=== PATIENT | male | born 1965 | race Caucasian/White ===

== ENCOUNTER 2024-05-13 13:17 | Outpatient (AMB) | payer MEDICAID, SELFPAY ==
--- NOTE | 2024-05-13 13:19 | A.SPINEOV_ITS ---
Intake Visit Reasons: cord compression Intake Note: Mr. Fisher is here today c/o neck pain. Elevator Inspector Required: No Assessment & Plan Assessment & Plan (1) Cervical disc disorder: Code(s): M50.90 - Cervical disc disorder, unspecified, unspecified cervical region Category: Medical Plan Dear Dr Pat, Thank you for referring Mr Fisher to our office today. He is a very nice 58-year-old gentleman presents to the office today for evaluation of chronic neck pain. He reports that he has had on and off neck pain for many years. Back in 2008, he had a flare-up associated with the radiculopathy down his right arm which ultimately went away with just some gentle conservative treatment including therapy. Maybe 6 months ago or so, things started to act up on him. Specifically, he has been feeling significant amounts of neck pain in the back of his neck down the lower cervical regions. It bothers him when he turns his head. He has been doing the physical therapy exercises that he learned years ago but it has become too difficult and painful to continue them. He tried doing them in the shower thinking the heat from the shower might help but it does not seem to be doing anything. He has been taking meloxicam and methocarbamol. The meloxicam does not do anything. The methocarbamol does seem to help a little bit. 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 Denies any shooting pains down his arms, tingling numbness, gait imbalance, bladder incontinence, difficulty with fine motor tasks. PMH: He is otherwise healthy, he has high cholesterol, depression he does smoke a little less than a pack of cigarettes a day and smokes marijuana daily, denies any problems with his heart, lungs, kidneys, liver, major abdominal surgeries, neck surgeries, bleeding disorders, blood clots etc. Social hx: As above, smokes marijuana and cigarettes daily, no alcohol Medications: Methocarbamol, bupropion, rosuvastatin, meloxicam Allergies: None Physical exam: Awake alert oriented no acute distress, he has full strength of bilateral upper and lower extremities. Slightly brisk reflexes in the upper extremities, no Rosario's sign, 3+ reflexes in the patella with clonus in the left foot. No gait imbalance. Imaging review: Cervical MRI done at [facility] shows multilevel degenerative disc disease, starting at the top were C3-4 has fairly collapsed disc, there appears to be osteophyte overgrowth here, I am not exactly sure if it has fused yet. C4-5 there is severe disc collapse with Modic endplate changes and moderate to severe central canal stenosis, C5-6 also degenerative disc disease with moderate to severe stenosis. There may be subtle cord signal change her on the left. Not reported by the radiologist. Impression: 58-year-old male presents for evaluation of neck pain, who has multilevel degenerative disc disease. He also has superimposed congenitally narrow spinal canal and there is significant stenosis at C4-5 and C5-6 as outlined above. There may be some subtle cord signal change on the left, not reported by the radiologist. He does have clonus in his left foot which would be consistent with his MRI imaging if indeed the T2 cord signal changes true. Currently has no myelopathic symptoms. I reviewed his MRI with him at length, explained to him that neck pain can be difficult to always establish the source. It can be associated with degenerative disc but can be from other things as well. Typically, the surgery of choice for neck pain and degenerative discs that has failed conservative treatment would be anterior cervical fusion. Before we consider doing fusion for neck pain, I would like to order a noncontrast CT scan of the cervical spine to be more clear about whether that C3-4 disc is already fused. Once the CT scan is done, I will bring him back and Dr. Boyd and I can review the MRI and CT together determine what surgery would be optimal for him. Thank you for allowing us to care for your patient. The total time spent with this visit with this patient was 45 minutes reviewing history, physical exam, cervical spine imaging review, and implementation of treatment plan or further diagnostic testing Joselo Boyd MD,PhD [facility] Orders: Orders CT cervical spine wo IV con Today M50.90 - Cervical disc disorder, unspecified, unspecified cervical region Coding Level of Care Code New Pt Level 4 (55921) Diagnoses Cervical disc disorder M50.90
== END 2024-05-13 14:47 | disposition home or self-care (01) ==
PROVIDERS: PCP Family Medicine; Referring Provider Family Medicine; Visit Provider Physician Assistant
DX: M50.90 Cervical disc disorder, unspecified, unspecified cervical region (principal)
CPT/HCPCS: 99204

== ENCOUNTER → 2024-05-13 13:17 | Outpatient (BNVA) | payer MEDICAID, SELFPAY | PROVIDERS: PCP Family Medicine; Visit Provider Physician Assistant | DX: M50.90 Cervical disc disorder, unspecified, unspecified cervical region (principal) | CPT/HCPCS: 99212 ==

== ENCOUNTER 2024-05-27 14:17 | Outpatient (AMB) | payer MEDICAID, SELFPAY ==
--- NOTE | 2024-05-27 15:37 | A.SPINEOV_ITS ---
Intake Visit Reasons: CT follow up Intake Note: Mr. Fisher is here today to f/u on his CT results CT done at [facility] Pole Classifier Required: No Assessment & Plan Assessment & Plan (1) Cervical disc disorder: Code(s): M50.90 - Cervical disc disorder, unspecified, unspecified cervical region Category: Medical Plan Mr Fisher return to see me in follow-up. He continues to have severe posterior cervical neck pain. His CT done at [facility] confirms what we saw on his MRI that he has multilevel degenerative disc disease. He has no radiculopathy symptoms or myelopathic symptoms. The pain is so severe that he is having trouble even going to work. He is interested in surgery. I explained to him th at the typical treatment for this would be an anterior cervical fusion, but that I would need to review with Dr. Boyd to see if we could localize better which levels we think the pain maybe coming from. Right now there are 3 degenerative disc. None of them look fused. Once I have a chance to review everything with Dr. Boyd I will call the patient back in finalize a plan for him. Total amount of time spent in this visit was 20 minutes in discussion of symptoms, cervical CT and MRI imaging results and subsequent plan of care Joselo Boyd MD,PhD [facility] Coding Level of Care Code Est Pt Level 3 (99887) Diagnoses Cervical disc disorder M50.90
== END 2024-05-27 16:02 | disposition home or self-care (01) ==
PROVIDERS: PCP Family Medicine; Visit Provider Physician Assistant
DX: M50.90 Cervical disc disorder, unspecified, unspecified cervical region (principal)
CPT/HCPCS: 99213

== ENCOUNTER → 2024-05-27 14:17 | Outpatient (BNVA) | payer MEDICAID, SELFPAY | PROVIDERS: PCP Family Medicine; Visit Provider Physician Assistant | DX: M50.31 Other cervical disc degeneration, high cervical region (principal); M50.321 Other cervical disc degeneration at C4-C5 level; M50.322 Other cervical disc degeneration at C5-C6 level | CPT/HCPCS: 99212 ==

== ENCOUNTER 2024-07-26 14:12 | Outpatient (AMB) | payer MEDICAID, SELFPAY ==
--- NOTE | 2024-07-26 14:38 | A.SPINEOV_ITS ---
Intake Visit Reasons: F/U from Intake Note: Mr. Fisher is here today to F/u after seeing Dr. Morales Yard Switcher Required: No Assessment & Plan Assessment & Plan (1) Cervical disc disorder: Code(s): M50.90 - Cervical disc disorder, unspecified, unspecified cervical region Category: Medical Plan Mr Fisher is back in follow up. His injection at C7-T1 by Dr. Morales has taken the neck pain away and he is feeling great. I told him to give us a call back down the road if something changes. We discussed the natural history of degenerative disc disease again as well as trying to avoid surgery as long as possible. He will call us down the road if something changes. Otherwise I told him to continue to follow up with Dr. Morales for more injections if needed. Total amount of time spent in this visit was 20 minutes in discussion of symptoms, cervical CT and MRI at [facility] imaging results and subsequent plan of care Joselo Boyd MD,PhD [facility] Coding Level of Care Code Est Pt Level 3 (29126) Diagnoses Cervical disc disorder M50.90
== END 2024-07-26 15:05 | disposition home or self-care (01) ==
PROVIDERS: PCP Family Medicine; Visit Provider Physician Assistant
DX: M50.90 Cervical disc disorder, unspecified, unspecified cervical region (principal)
CPT/HCPCS: 99213

== ENCOUNTER → 2024-07-26 14:12 | Outpatient (BNVA) | payer MEDICAID, SELFPAY | PROVIDERS: PCP Family Medicine; Visit Provider Physician Assistant | DX: M50.90 Cervical disc disorder, unspecified, unspecified cervical region (principal) | CPT/HCPCS: 99212 ==

== ENCOUNTER 2025-07-28 14:05 | Outpatient (AMB) | payer MEDICAID, SELFPAY ==
--- OUTSIDE RECORDS SUMMARY | 2024-05-26 05:00 | XMS_ITS ---
Author Organization [facility] Address [address] [place] [address] Care Team Providers Care Glue Wheel Operator Name Role Phone Roman Robles Primary Care Provider REASON FOR VISIT office: chronic care f/u Medications Medication SIG (Take, Route, Frequency, Duration) Notes Start Date End Date Status INCRUSE ELLIPTA 62.5 mcg (0.0625 mg)/inh 1 INH inhaled every 24 hours for 28 days 04/02/2021 Not-Taking VITAMIN B-50 Vitamin B Complex 1 tab(s) orally once a day for 30 day(s) 09/15/2017 Not-Taking PROAIR HFA 90 mcg/inh 2 puff(s) inhaled 4 times a day PRN Wheezing or Shortness of breath for 28 days Not-Taking VITAMIN D3 1000 intl units as directed orally once a day for 28 day(s) 04/02/2021 Not-Taking THIAMINE 100 mg 1 tab(s) orally once a day for 28 day(s) 04/02/2021 Not-Taking BUPROPION 300 mg/24 hours 1 tab(s) orally every 24 hours for 30 days 03/18/2024 Active FOLIC ACID 1 mg 1 tab(s) orally once a day for 28 day(s) 04/02/2021 Not-Taking NICODERM C-Q CLEAR 21 mg/24 hr 1 PATCH transdermally once a day 04/02/2021 Not-Taking TYLENOL 8 HR ARTHRITIS PAIN 650 mg 2 tab(s) orally every 8 hours for 30 days 12/17/2022 Not-Taking NICODERM C-Q CLEAR 21 mg/24 hr 1 PATCH transdermally once a day apply once a day in am and remove at night 12/03/2023 Not-Taking ROSUVASTATIN 5 mg 1 tab(s) orally once a day for 90 days 01/23/2024 Active Social History Sex Assigned At : Social History Observation Description Sex Assigned At Male Encounters Encounter Location Date Provider Diagnosis [address] [address] 05/26/2024 Roman Robles Encounter for screening for COVID-19 Z11.52 Assessments Encounter Date Diagnosis (ICD Code) Assessment Notes Treatment Notes Treatment Clinical Notes Section Notes 05/26/2024 Encounter for screening for COVID-19 (ICD-10 - Z11.52) Covid screening is negative. Discussed in detail with patient how to practice social distancing by avoiding public spaces and crowds now, wearing a mask in public to keep nose and mouth covered, and washing hands frequently especially before eating and after using the bathroom. Return to clinic if you develop any symtpoms of concern to be rescreened or go to the emergency room if you are having concerning symptoms for COVID-19. 05/26/2024 Other Plan Of Treatment Treatment Notes Assessment Notes Encounter for screening for COVID-19 Cov id screening is negative. Discussed in detail with patient how to practice social distancing by avoiding public spaces and crowds now, wearing a mask in public to keep nose and mouth covered, and washing hands frequently especially before eating and after using the bathroom. Return to clinic if you develop any symtpoms of concern to be rescreened or go to the emergency room if you are having concerning symptoms for COVID-19. Progress Notes * Daryl FISHER KDOB: 6 (60 yo M)Acc No.[id number]:05/26/2024 Progress Notes Patient: Daryl CROWDER Provider: NISHA Esquivel :1965 A ge:58 Y S ex:Male Date:05/26/2024 Address:[address] [place] [address], [facility] address, [facility] Subjective: * Chief Complaints: * 1 . Office: chronic care f/u. * HPI: G eneral: Symptom Screen: - Fever in the last 1 week? Patient denies - New or worsening cough in the last 1 week? Patient denies. - Contact will known COVID exposure in last 5 days? Patient denies -new rash within last 3 weeks? Patient denies RN/MA: - Have you received the COVID-19 vaccine? - Have you received COVID-19 booster? - Have you been tested positive for COVID -19 in the last 7 days? If so where and why?. * ROS: N o acute C/P no acute SOB, No problem with urine, No heartburn or abdominal pain. Endorses being able to climb one fight of stairs without stopping due to SOB, Mood: stable, appetite: good, sleeping well. Denies new skin rashes. * Medical History: * Medications: T aking ROSUVASTATIN 5 mg tablet 1 tab(s) orally once a day , Taking BUPROPION 300 mg/24 hours tablet, extended release 1 tab(s) orally every 24 hours , Not- Taking/PRN NICODERM C-Q CLEAR 21 mg/24 hr film, extended release 1 PATCH transdermally once a day apply once a day in am and remove at night, Not-Taking/PRN TYLENOL 8 HR ARTHRITIS PAIN 650 mg tablet, extended release 2 tab(s) orally every 8 hours , Not- Taking/PRN NICODERM C-Q CLEAR 21 mg/24 hr film, extended release 1 PATCH transdermally once a day , Not-Taking/PRN FOLIC ACID 1 mg tablet 1 tab(s) orally once a day , Not-Taking/PRN THIAMINE 100 mg tablet 1 tab(s) orally once a day , Not- Taking/PRN VITAMIN D3 1000 intl units tablet as directed orally once a day , Not-Taking/PRN VITAMIN B-50 Vitamin B Complex tablet 1 tab(s) orally once a day , Not- Taking/PRN INCRUSE ELLIPTA 62.5 mcg (0.0625 mg)/inh powder 1 INH inhaled every 24 hours , Not-Taking/PRN PROAIR HFA 90 mcg/inh aerosol 2 puff(s) inhaled 4 times a day PRN Wheezing or Shortness of breath Objective: * Vitals: Assessment: * Assessment: 1. E ncounter for screening for COVID-19 - Z11.52 (Primary) Plan: * Treatment: * Images: Billing Information: * Visit Code: * Procedure Codes: Care Plan Details* * Electronic signature of Hua Robles on 07/28/2025 at 09:33 PM EST Sign off status: Pending * Provider: NISHA Esquivel Date: 1 Generated for Mirella fitch/Anthony/Trev on: 1 09/28/2024 09:33 PM EST
--- OUTSIDE RECORDS SUMMARY | 2024-06-10 06:30 | XMS_ITS ---
Author Organization [facility] Address [address] [place] [address] Care Team Providers Care Insulating Machine Operator Name Role Phone Roman Robles Primary Care Provider Valentina Vieira Unavailable [phone] REASON FOR VISIT MS/PHONE: Supportive Counseling [phone] Social History Sex Assigned At : Social History Observation Description Sex Assigned At Male Encounters Encounter Location Date Provider Diagnosis [facility] [address] [facility] [place], [place] [id number] 06/10/2024 Valentina Vieira Plan Of Treatment No Information Progress Notes * Daryl FISHER KDOB: 6 (60 yo M)Acc No.[id number]:06/10/2024 Progress Notes Patient: Daryl CROWDER Provider: Jessica Vieira :1965 A ge:59 Y S ex:Male Date:06/10/2024 Address:[address] [place] [address], verify address, [facility] Pcp:Roman Robles Subjective: * Chief Complaints: * 1 . MS/PHONE: Supportive Counseling [phone]. * Medical History: Objective: * Vitals: Assessment: Plan: * Treatment: * Images: Billing Information: * Visit Code: * Procedure Codes: Care Plan Details* * Electronic signature of Brianda Vieira on 07/28/2025 at 09:34 PM EST Sign off status: Pending * Provider: Jessica Vieira Date: Generated for Sudeepi little/Anthony/eTransmitting on: 09/28/2024 09:34 PM EST
--- OUTSIDE RECORDS SUMMARY | 2025-04-30 16:00 | XMS_ITS ---
Author Organization [facility] Address [address] [place] [address] Care Team Providers Care Geography Instructor Name Role Phone Nettebenjamin Huapat Primary Care Provider [phone] Migration, Provider Unavailable Unavailable Allergies Allergen (clinical drug ingredient) Drug/Non Drug Allergy documented on EMR Reaction Allergy Type Onset Date Status BANANAS (FRUIT) (uncoded) vomiting Allergy Active [facility]ASON FOR VISIT [facility] Encounter Medications Medication SIG (Take, Route, Frequency, Duration) Notes Start Date End Date Status Vitamin B-50 VITAMIN B COMPLEX 1 TAB(S) ORALLY ONCE A DAY for 30 DAY(S) *Please review and pick correct strength-formulat ion from GreenGar options. If intended option is not shown, discontinue and re-order from Quick Search* 09/15/2017 Not-Taking Incruse Ellipta 62.5 MCG (0.0625 MG)/INH 1 INH INHALED EVERY 24 HOURS for 28 DAYS *Please review and pick correct strength-formulat ion from GreenGar options. If intended option is not shown, discontinue and re-order from Quick Search* 04/02/2021 Not-Taking ProAir HFA 90 MCG/INH 2 PUFF(S) INHALED 4 TIMES A DAY PRN WHEEZING OR SHORTNESS OF BREATH for 28 DAYS *Please review and pick correct strength-formulat ion from GreenGar options. If intended option is not shown, discontinue and re-order from Quick Search* Not-Taking Thiamine HCl 100 MG 1 tab(s) orally once a day for 28 day(s) 04/02/2021 Not-Taking Vitamin D3 25 MCG (1000 UT) as directed orally once a day for 28 day(s) 04/02/2021 Not-Taking Rosuvastatin Calcium 5 MG 1 tab(s) orally once a day for 90 days 01/23/2024 Active Nicoderm CQ 21 MG/24HR 1 PATCH transdermally once a day 12/03/2023 Not-Taking Nicoderm CQ 21 MG/24HR 1 PATCH transdermally once a day 04/02/2021 Not-Taking Folic Acid 1 MG 1 tab(s) orally once a day for 28 day(s) 04/02/2021 Not-Taking Tylenol 8 Hour Arthritis Pain 650 MG 2 tab(s) orally every 8 hours for 30 days 12/17/2022 Not-Taking buPROPion HCl ER (XL) 300 MG 1 tab(s) orally every 24 hours for 30 days Active Social History Sex Assigned At : Social History Observation Description Sex Assigned At Male Encounters Encounter Location Date Provider Diagnosis [address] [address] 04/30/2025 Provider Migration Major depressive disorder, recurrent severe without psychotic features F33.2 Assessments Encounter Date Diagnosis (ICD Code) Assessment Notes Treatment Notes Treatment Clinical Notes Section Notes 04/30/2025 Major depressive disorder, recurrent severe without psychotic features (ICD-10 - F33.2) Plan Of Treatment Medication Medication Name Sig Start Date Stop Date Notes buPROPion HCl ER (XL) 300 MG 1 tab(s) or ally every 24 hours for 30 days Progress Notes * Daryl FISHER KDOB: [birth year] (60 yo M)Acc No.[id number]:04/30/2025 Patient: Daryl CROWDER Provider: :1965 A ge:59 Y S ex:Male Date:04/30/2025 Address:[address] [place] [address], verify address, [facility] Pcp:Roman Robles Subjective: * Chief Complaints: * 1 . Multum To Medispan Conversion Encounter. * Medical History: * Medications: T aking Rosuvastatin Calcium 5 MG Tablet 1 tab(s) orally once a day , Not- Taking/PRN Nicoderm CQ 21 MG/24HR Patch 24 Hour 1 PATCH transdermally once a day , Not-Taking/PRN Tylenol 8 Hour Arthritis Pain 650 MG Tablet Extended Release 2 tab(s) orally every 8 hours , Not-Taking/PRN Nicoderm CQ 21 MG/24HR Patch 24 Hour 1 PATCH transdermally once a day , Not-Taking/PRN Folic Acid 1 MG Tablet 1 tab(s) orally once a day , Not-Taking/PRN Thiamine HCl 100 MG Tablet 1 tab(s) orally once a day , Not-Taking/PRN Vitamin D3 25 MCG (1000 UT) Tablet as directed orally once a day , Not-Taking/PRN Vitamin B-50 VITAMIN B COMPLEX TABLET 1 TAB(S) ORALLY ONCE A DAY , Notes to Pharmacist: *Please review and pick correct strength-formulation from Kinnekspan options. If intended option is not shown, discontinue and re-order from Quick Search*, Not-Taking/PRN Incruse Ellipta 62.5 MCG (0.0625 MG)/INH POWDER 1 INH INHALED EVERY 24 HOURS , Notes to Pharmacist: *Please review and pick correct strength-formulation from Updateran options. If intended option is not shown, discontinue and re-order from Quick Search*, Not-Taking/PRN ProAir HFA 90 MCG/INH AEROSOL 2 PUFF(S) INHALED 4 TIMES A DAY PRN WHEEZING OR SHORTNESS OF BREATH , Notes to Pharmacist: *Please review and pick correct strength-formulation from Updateran options. If intended option is not shown, discontinue and re-order from Quick Search* * Allergies: B ANANAS (FRUIT): vomiting - Allergy - Criticality Unknown. Objective: * Vitals: Assessment: * Assessment: 1. M ajor depressive disorder, recurrent severe without psychotic features - F33.2 ? Plan: * Treatment: * Images: Billing Information: * Visit Code: * Procedure Codes: * Electronic signature of Prov ider Migration on 07/28/2025 at 09:34 PM EST Sign off status: Pending * Provider: Date: 0 04/30/2025 Generated for Mirella fitch/Anthony/Oliviasmbeth on: 1 09/28/2024 09:34 PM EST
--- NOTE | 2025-07-28 14:40 | HO.SPINEOV ---
Intake Visit Reasons: neck pain Intake Note: Mr. Fisher is here today c/o neck pain. Charging Car Operator Required: No Allergies No Known Allergies Allergy (Verified 07/28/25 14:41) Assessment & Plan Assessment & Plan (1) Cervical disc disorder: Code(s): M50.90 - Cervical disc disorder, unspecified, unspecified cervical region Category: Medical Plan Mr Fisher is here in follow-up. About 2 months ago he developed a severe pain radiating down his right arm going into his subscapular area, down into his triceps region going into his forearm and then extending into his hand. He feels numbness of the palmar side of his hand, more toward the thumb index and middle finger. His arm feels weak. He has been taking medication prescribed by his primary care physician Dr. Pat including methocarbamol and tramadol. He has tried [id number]-[id number]-mduwhdk medications as well. He has previously done physical therapy, in the setting of his known severe degenerative disc disease in his neck. He has also had injections earlier this year with relatively good success. On exam he is very uncomfortable, has a hard time participating in motor exam because the pain is so bad. When he turns his head he can make the pain go down his arm. He has intact reflexes at the biceps and triceps both sides. No Rosario's sign. I suspect he has a new acute herniated disc, probably at C5-6 based on his clinical presentation. I am going to order an updated MRI so we can discuss possibility of surgical intervention. Total amount of time spent in this visit was 20 minutes in discussion of symptoms, ordering cervical imaging and subsequent plan of care Joselo Boyd MD,PhD [facility] Orders: Orders MR cervical spine wo con Today M50.90 - Cervical disc disorder, unspecified, unspecified cervical region Coding Level of Care Code Est Pt Level 3 (98607) Diagnoses Cervical disc disorder M50.90
--- OUTSIDE RECORDS SUMMARY | 2025-07-28 21:34 | XMS_ITS | Clinical Summary ---
Author Organization [facility] Address [address] [facility] 7t [place] [address] Care Team Providers Care Pairer Substandard Name Role Phone Roque Soto Unavailable Radha Pat MD Primary Care Provider Cari Sebastian Unavailable Allergies No known active allergies Medications pyridoxine (Vitamin B-6) 50 MG tablet Take 50 mg by mouth Once per day. 03/05/20 25 Active hydrOXYzine HCl (Atarax) 25 MG tablet Take 25 mg by mouth every 12 (twelve) hours if needed for anxiety. Active Melatonin 3 MG capsule Take 3 mg by mouth at bedtime. Active buPROPion XL (Wellbutrin XL) 300 MG 24 hr tabletIndications :Severe episode of recurrent major depressive disorder, without psychotic features (CMS/HCC) (HCC) Take 1 tablet (300 mg) by mouth in the morning. Do not crush, chew, or split. 30 tablet 1 07/20/20 25 026 Active traZODone (Desyrel) 150 MG tabletIndications :Psychophysiologi ramona insomnia Take 1 tablet (150 mg) by mouth at bedtime. 90 tablet 07/20/20 25 026 Active Brexpiprazole (Rexulti) 0.5 MG tabletIndications :Severe episode of recurrent major depressive disorder, without psychotic features (CMS/HCC) (HCC),Suicidal ideation Take 0.5 mg by mouth Once per day. 30 tablet 07/20/20 25 026 Active ketoconazole (NIZOral) 2 % shampooIndication s:Seborrheic dermatitis Use on scalp and varma in shower then rinse. 120 mL 1 07/20/20 25 026 Active traMADol (Ultram) 50 MG tabletIndications :Cervical spinal cord compression (CMS/HCC) (HCC),Cervical radiculopathy Take 1 tablet (50 mg) by mouth if needed in the morning and at bedtime for severe pain. 56 tablet 1 07/20/20 25 026 Active pantoprazole (ProtoNix) 40 MG EC tabletIndications :Gastroesophageal reflux disease without esophagitis Take 1 tablet (40 mg) by mouth before breakfast. 90 tablet 2 07/20/20 25 026 Active methocarbamol (Robaxin) 500 MG tabletIndications :Cervical radiculopathy Take 1 tablet (500 mg) by mouth if needed in the morning, at noon, in the evening, and at bedtime for muscle spasms. 20 tablet 07/20/20 25 Active methocarbamol (Robaxin) 500 MG tabletIndications :Cervical radiculopathy Take 1 tablet (500 mg) by mouth if needed in the morning, at noon, in the evening, and at bedtime for muscle spasms for up to 5 days. 20 tablet 05/19/20 24 025 Discontinued(Th erapy completed) mirtazapine (Remeron) 7.5 MG tabletIndications :Cervical radiculopathy Take 1 tablet (7.5 mg) by mouth at bedtime. 30 tablet 2 05/19/20 24 025 Discontinued rosuvastatin (Crestor) 5 MG tablet Take 1 tablet (5 mg) by mouth Once per day. 90 tablet 08/13/20 24 025 Discontinued buPROPion XL (Wellbutrin XL) 300 MG 24 hr tabletIndications :Recurrent major depressive disorder, in partial remission (CMS/HCC) Take 1 tablet (300 mg) by mouth in the morning. Do not crush, chew, or split. 30 tablet 1 09/03/19 25 025 Discontinued(Re order (will not trigger notification to Pharmacy)) pantoprazole (ProtoNix) 40 MG EC tablet Take 40 mg by mouth before breakfast. 03/05/20 25 025 Discontinued(Re order (will not trigger notification to Pharmacy)) traZODone (Desyrel) 150 MG tablet Take 150 mg by mouth at bedtime. 025 Discontinued(Re order (will not trigger notification to Pharmacy)) Active Problems Problem Noted Date Diagnosed Date Severe episode of recurrent major depressive disorder, without psychotic features (CMS/HCC) 07/20/2025 Alcohol abuse 07/20/2025 Extreme poverty 07/20/2025 Suicidal ideation 07/20/2025 Alcohol abuse counseling and surveillance of alc oholic 07/20/2025 Encounters Date Type Department Care Team Description 07/28/2025 [facility] Out[facility] [address] [phone] Cari Sebastian 07/28/2025 Patient Outreach [facility] ([facility]) Department [address] [place] [phone] Roque Soto 07/21/2025 Patient Outreach [facility] ([facility]) Department [address] [place] [phone] Cari Sebastian 07/20/2025 10:40 AM EST Office Visit [facility] MEDICAL [address] [place] [address] Radha Pat MD Cervical spinal cord compression (CMS/HCC) (HCC) (Primary Dx); Cervical radiculopathy; Immunization due; Screening for colon cancer; Screening for lung cancer; Seborrheic dermatitis; Gastroesophageal reflux disease without esophagitis 07/20/2025 Telephone [facility] MEDICAL [address] [place] [phone] Radha Pat MD Medication Problem 07/13/2025 Travel 07/06/2025 10:20 AM EST Office Visit [facility] MEDICAL [address] [place] [address] Radha Pat MD Severe episode of recurrent major depressive disorder, without psychotic features (CMS/HCC) (HCC) (Primary Dx); Alcohol abuse; Extreme poverty; Suicidal ideation; Alcohol abuse counseling and surveillance of alcoholic; Psychophysiological insomnia 07/06/2025 Travel 06/29/2025 Travel 06/27/2025 Patient Outreach [facility] [address] [place] [phone] Roque Soto c3 care management 06/27/2025 Patient Outreach [facility] [address] [place] [phone] SebastianMeran 06/20/2025 Patient Outreach [facility] [address] [place] [phone] Roque Soto 06/13/2025 [facility] Outreach [facility] [address] [place] [phone] Roque Soto c3 care management 06/13/2025 Patient Outreach [facility] [address] [place] [phone] Roque Soto care managemnt 06/10/2025 Patient Outreach [facility] [address] [place] [phone] Price, November [facility]3 CM outreach 06/03/2025 Telephone [facility] MEDICAL [address] [place] [address] PcpSallywn Unassigned 05/19/2025 Patient Outreach [facility] [address] [place] [phone] Matilde Woods 05/04/2025 Telephone [facility] [address] [place] [address] Radha Pat MD Hospital Follow-up from Last 3 Months Immunizations Immunization Administration Dates Next Due Hep A, Adult 12/25/2023,12/31/2022 Hep B, adult 02/26/2024,12/25/2023,12/31/2022 Influenza, seasonal, injecta ble, preservative free 05/20/2025 Moderna Covid-19 Vaccine 12+ 07/20/2025 Tdap 01/21/2025 Social History Tobacco Use Types Packs/Day Years Used Date Smoking Tobacco: Never Assessed Depression Answer Date Recorded Patient Health Questionnaire-9 Score 12 07/20/2025 Patient Health Questionnaire-9 Score 12 07/20/2025 Last PHQ-9: Questionnaire Data Not on file 1 09/20/2024 Depression Answer Date Recorded Patient Health Questionnaire-2 Score 6 07/20/2025 Sex and Gender Information Value Date Recorded Sex Assigned at Male 03/08/2024 11:46 AM EDT Legal Sex Male 11:46 AM EDT Gender Identity Male 03/08/2024 11:46 AM EDT Sexual Orientation Choose not to disclose 2023 11:52 AM EDT Last Filed Vital Signs Vital Sign Reading Time Taken Comments Blood Pressure 115/77 07/20/2025 10:54 AM EST Pulse 71 07/20/2025 10:54 AM EST Temperature 37.1 C (98.7 F) 07/20/2025 10:54 AM EST Respiratory Rate 20 07/20/2025 10:5 4 AM EST Oxygen Saturation 98% 05/19/2024 3:29 PM EDT Inhaled Oxygen Concentration - - Weight 72.5 kg (159 lb 12.8 oz) 025 10:54 AM EST Height 182.9 cm (6') 05/19/2024 3:29 PM EDT Body Mass Index 21.67 05/19/2024 3:29 PM EDT Plan of Treatment Upcoming Encounters Date Type Department Care Team (Late st Contact Info) Description 09/14/2025 11:00 AM EST Office Visit [facility] MED[facility] [address] [place] [address] Radha Pat MD [address] [place] [address] Health Maintenance Due Date Last Done Comments CT Colonography 1966 Colonoscopy 1966 Colorectal Cancer Screening 1966 FIT DNA/Cologuard 1966 FIT 1966 FOBT 1966 SDOH Screening 1966 Sigmoidoscopy 1966 Alcohol/Substance Use Screening 1978 Tobacco Screening 1978 Pneumococcal Vaccine: 50+ Years (1 of 2 - PCV) 1985 RSV Patients and Patients Aged 60 years or older (1 - Risk 50-74 years 1-dose series) 2016 Zoster Vaccines (1 of 2) 2016 Depression Monitoring 01/18/2026 07/20/2025 , 07/20/2025 Disability Screening 07/13/2026 07/13/2025 Lipid Panel 12/25/2028 12/26/2023 DTaP/Tdap/Td Vaccines (2 - T d or Tdap) 01/21/2035 01/21/2025 Hepatitis A Vaccines Completed 12/25/2023, 12/31/2022 Hepatitis B Vaccines Completed 02/26/2024, 12/25/2023, 12/31/2022 HIV Screening Completed 05/20/2024 Hepatitis C Screening Completed 05/20/2024 Influenza Vaccine Completed 05/20/2025 COVID-19 Vaccine Completed 07/20/2025 HIB Vaccines Aged Out No longer eligi ble based on patient's age to complete this topic HPV Vaccines Aged Out No longer eligi ble based on patient's age to complete this topic IPV Vaccines Aged Out No longer eligi ble based on patient's age to complete this topic Meningococcal B Vaccine Aged Out No l onger eligible based on patient's age to complete this topic Meningococcal Vaccine Aged Out No janay bisi eligible based on patient's age to complete this topic RSV under 20 months Aged Out No longe r eligible based on patient's age to complete this topic Rotavirus Vaccines Aged Out No longer eligible based on patient's age to complete this topic Procedures Procedure Name Priority Date/Time Associated Diagnosis Comments AMB REFERRAL TO NEUROSURGERY Routine 07/28/2025 Cervical spinal cord compression (CMS/HCC) (HCC) Cervical radiculopathy HEPATITIS C AB W/REFLEX TO HCV QUANT NAAT IF POSITIVE Routine 05/20/2024 8:16 AM EDT Abnormal weight loss HIV P24 ANTIGEN/ANTIBODY WITH REFLEX TO CONFIRMATION Routine 05/20/2024 8:16 AM EDT Abnormal weight loss LIPID PANEL, STANDARD Routine 12/26/2023 11:49 AM EDT from Last 3 Months or Most Recently Relevant to Health Maintenance Results * Referral to Neurosurgery (07/28/2025) us Radha Pat MD OUTPATIENT REFERRAL ORDERABLES Final Result * Hepatitis C Virus (HCV) Antibody With Reflex to Quantitative Real-time PCR [[id number]] (05/20/2024 8:16 AM EDT) Pathologist [facility] HCV Ab Non Reactive Non Reactive [facility] 1 Blood Venous blood specimen / Unknown 05/20/2024 8:16 AM EDT 05/20/2024 Narrative [facility] 1 - 05/21/2024 10:06 AM EDT Performed at: [facility] [address], [address], [place], [place] [id number] Keg Varnisher: Dimitri Rogers MD, Phone: [phone] Radha Pat MD LAB BLOOD ORDERABLES Final Res ult Performing Organization Address [facility] Co de Phone Number [facility] 1 * HIV p24 Antigen/Antibody With Reflex to Confirmation [id number] (05/20/2024 8:16 AM EDT) Pathologist [facility] HIV Ab/p24 Ag Screen Non Reactive Non Reactive [facility] 1 Comment: HIV-1/HIV-2 antibodies and HIV-1 p24 antigen were NOT detected. There is no laboratory evidence of HIV infection. HIV Negative Blood Venous blood specimen / Unknown 05/20/2024 8:16 AM EDT 05/20/2024 Narrative [facility] 1 - 05/21/2024 10:06 AM EDT Performed at: - [facility] [address], [address], [place], [place] [id number] Keg Varnisher: Dimitri Rogers MD, Phone: [phone] Radha Pat MD LAB BLOOD ORDERABLES Final Res ult [facility] 1 * Lipid Panel, Standard (12/26/2023 11:49 AM EDT) Blood Venous blood specimen / Unknown Radha Pat MD LAB BLOOD ORDERABLES Final Res ult from Last 3 Months or Most Recently Relevant to Health Maintenance Insurance [facility] C3 Care Teams Pairer Substandard Relationship Specialty Start Date End Date Radha Pat MD [address] [place] [address] PCP - General Family Medicine 07/06/25 Roque Soto 06/13/25 07/28/25 Cari Sebastian 07/18/25
--- OUTSIDE RECORDS SUMMARY | 2025-07-28 21:34 | XMS_ITS | Encounter Summary ---
Author Organization [facility] Address [address] [place] [address] [address] [place] [address] Care Team Providers Care Soccer Commentator Name Role Phone Radha Pat MD Primary Care Provider Price November Unavailable Roque Soto Unavailable Radha Pat MD Primary Care Provider [phone] Cari Sebastian Unavailable Encounter Details Date Type Department Care Team (Late Contact Info) Description 07/22/2024 Orders Only [facility] [address] [place] [address] Radha Pat MD [address] [place] [address] Social History Tobacco Use Types Packs/Day Years Used Date Smoking Tobacco: Never Assessed Sex and Gender Information Value Date Recorded Sex Assigned at Male 03/08/2024 11:46 AM EDT Legal Sex Male 11:46 AM EDT Gender Identity Male 03/08/2024 11:46 AM EDT Sexual Orientation Choose not to disclose 2023 11:52 AM EDT documented as of this encounter Plan of Treatment Upcoming Encounters Date Type Department Care Team (Late Contact Info) Description 09/14/2025 11:00 AM EST Office Visit [facility] MED[facility] [address] [place] [address] Radha Pat MD [address] [place] [address] documented as of this encounter Procedures Procedure Name Priority Date/Time Associated Diagnosis Comments LIPID PANEL, STANDARD Routine 12/26/2023 11:49 AM EDT HEMOGLOBIN A1C Routine 12/26/2023 11:49 AM EDT ALBUMIN/CREATININE RATIO, RANDOM URINE Routine 12/26/2023 11:49 AM EDT documented in this encounter Results * Lipid Panel, Standard (12/26/2023 11:49 AM EDT) Blood Venous blood specimen / Unknown us Radha Pat MD LAB BLOOD ORDERABLES Final Res ult * Hemoglobin A1c (12/26/2023 11:49 AM EDT) Blood Venous blood specimen / Unknown us Radha Pat MD LAB BLOOD ORDERABLES Final Res ult * Albumin/Creatinine Ratio, Random Urine (12/26/2023 11:49 AM EDT) Urine (Urine, Random) us Radha Pat MD LAB URINE ORDERABLES Final Res ult documented in this encounter Visit Diagnoses Not on filedocumented in this encounter Care Teams Soccer Commentator Relationship Specialty Start Date End Date Radha Pat MD [address] [facility] [place] [address] PCP - General Family Medicine 03/08/24 05/18/25 Radha Pat MD [address] [facility] [address] PCP - General Family Medicine 07/06/25 Betty Thrasher 06/10/25 07/05/25 Roque Soto 06/13/25 07/28/25 Cari Sebastian 07/18/25 documented as of this encounter
--- OUTSIDE RECORDS SUMMARY | 2025-07-28 21:34 | XMS_ITS | Encounter Summary ---
Author Organization [employer] Address [address] [facility] [address] [place] [address] Care Team Providers Care Director Center Name Role Phone Radha Pat MD Primary Care Provider [phone] Price November Unavailable Roque Soto Unavailable Radha Pat MD Primary Care Provider [phone] Cari Sebastian Unavailable Reason for Visit * Reason Onset Date Comments Hospital Follow-up 05/04/2025 Encounter Details Date Type Department Care Team (Late st Contact Info) Description 05/04/2025 Telephone [facility] [address] [place] [address] Radha Pat MD [address] [place] [address] Hospital Follow-up Social History Tobacco Use Types Packs/Day Years Used Date Smoking Tobacco: Never Assessed Sex and Gender Information Value Date Recorded Sex Assigned at Male 03/08/2024 11:46 AM EDT Legal Sex Male 11:46 AM EDT Gender Identity Male 03/08/2024 11:46 AM EDT Sexual Orientation Choose not to disclose 2023 11:52 AM EDT documented as of this encounter Miscellaneous Notes * Telephone Encounter - Kristen Abrams LPN - 06/03/2025 1:41 PM EDT Call to patient to discuss recent admission/hospitalization and offer office visit. Date of hospitalization: 04/30/25 Discharge date: 06/02/25 Hospital: [facility] Records on file: yes Discharge diagnosis: Major depressive disorder, recurrent episode, Severe alcohol use disorder, severe, dependence Patient described events as: concerned he may hurt himself as he has been having suicidal ideation Lingering concerns/symptoms for provider: a little anxiety, went to a meeting today. Medication changes: Bupropion XL 150mg - 1 every day Melatonin 3mg - 1 at bedtime PRN Nicotine 7mg/24hr transdermal film - 1 patch every day Protonix 40mg - 1 every day Miralax - 17gm every day Trazodone 150mg - 1 at bedtime Dc'd - Acamprosate 333mg and Folic acid 1mg Follow-up scheduled: scheduled first available 07/06/25 - Physical is 07/20/25 Counseled on reasons for urgent evaluation while awaiting office visit. [facility] be seeing [facility] 06/03/25 @ 1pm * Telephone Encounter - Ale Mares LPN - 06/03/2025 8:17 AM EDT Looks like patient was discharged 06/02. Please obtain records. * Telephone Encounter - Ale Mares LPN - 05/27/2025 11:43 AM EDT Remains inpatient * Telephone Encounter - Ale Mares LPN - 05/20/2025 9:26 AM EDT Remains inpatient * Telephone Encounter - Ale Mares LPN - 05/16/2025 8:25 AM EDT Remains inpatient * Telephone Encounter - Ale Mares LPN - 05/06/2025 8:17 AM EDT Remains inpatient * Telephone Encounter - Ale Mares LPN - 05/04/2025 10:35 AM EDT Patient has been admitted nursing to follow up on discharge documented in this encounter Plan of Treatment Upcoming Encounters Date Type Department Care Team (Late st Contact Info) Description 09/14/2025 11:00 AM EST Office Visit [facility] MED[facility] [address] [place] [address] Radha Pat MD [address] [place] [address] documented as of this encounter Visit Diagnoses Not on filedocumented in this encounter Care Teams Director Center Relationship Specialty Start Date End Date Radha Pat MD [address] [place] [address] PCP - General Family Medicine 03/08/24 05/18/25 Radha Pat MD [address] [place] [address] PCP - General Family Medicine 07/06/25 PriceNovember 06/10/25 07/05/25 Roque Soto 06/13/25 07/28/25 Cari Sebastian 07/18/25 documented as of this encounter
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
--- OUTSIDE RECORDS SUMMARY | 2025-07-28 21:34 | XMS_ITS | Clinical Summary ---
Author Organization [facility] Address [address] [place] [address] Phone Care Team Providers Care Attendant [facility] Name Role Phone Radha Pat MD Primary Care Provider Social History Tobacco Use Types Packs/Day Years Used Date Smoking Tobacco: Never Assessed Education Answer Date Recorded Are you interested in more education? Not on nathalie e 01/21/2025 Are you concerned about learning? Not on file 01/21/2025 No 01/21/2025 No 01/21/2025 Digital Access Answer Date Recorded No 01/21/2025 No 01/21/2025 Reliable internet access at home? Not on file 01/21/2025 Device with a working camera? Not on file Sex and Gender Information Value Date Recorded Sex Assigned at Not on file Legal Sex Male 8:44 AM EDT Gender Identity Not on file Sexual Orientation Not on file Plan of Treatment Not on file Medical Devices Not [place] [id number] [place] [facility] Care Teams Attendant [facility] Relationship Specialty Start Date End Date Radha Pat MD [address] [place] [address] [email or web address] PCP - General Family Medicine 01/21/25 Additional Source Comments The information contained in this document represents components of the legal health record. It is not the complete legal health record.[facility]
--- OUTSIDE RECORDS SUMMARY | 2025-07-28 21:34 | XMS_ITS | Encounter Summary ---
Author Organization [employer] Address [address] [place] [address] Care Team Providers Care Icebox Worker Name Role Phone Price, November Unavailable Roque Soto Unavailable Radha Pat MD Primary Care Provider [phone] Cari Sebastian Unavailable Encounter Details Date Type Department Care Team (Late st Contact Info) Description 06/03/2025 Telephone [place] [facility] [address] [place] [address] Pcp, Emanuel Unassigned Social History Tobacco Use Types Packs/Day Years Used Date Smoking Tobacco: Never Assessed Sex and Gender Information Value Date Recorded Sex Assigned at Male 03/08/2024 11:46 AM EDT Legal Sex Male 11:46 AM EDT Gender Identity Male 03/08/2024 11:46 AM EDT Sexual Orientation Choose not to disclose 2023 11:52 AM EDT documented as of this encounter Miscellaneous Notes * Telephone Encounter - Emelina Velázquez LPN - 06/03/2025 11:[address] Pat for referral-TY! * Telephone Encounter - April Anderson - 06/03/2025 11:00 AM EDT Patient just recently got out of [facility] psych and was just discharged yesterday, he was there forone month. Patient states that he sees Dr. Pat and would like a referral for to be seen for therapy. Patient also asked to be scheduled for a CPR with Dr. Pat, appointment scheduled. Please advise. documented in this encounter Plan of Treatment Upcoming Encounters Date Type Department Care Team (Late st Contact Info) Description 09/14/2025 11:00 AM EST Office Visit [place] [facility] [address] [facility] [place] [address] Radha Pat MD [address] [place] [address] documented as of this encounter Visit Diagnoses Not on filedocumented in this encounter Care Teams Icebox Worker Relationship Specialty Start Date End Date Radha Pat MD [address] [place] [address] PCP - General Family Medicine 07/06/25 PriceNovember 06/10/25 07/05/25 Roque Soto 06/13/25 07/28/25 Cari Sebastian 07/18/25 documented as of this encounter
--- OUTSIDE RECORDS SUMMARY | 2025-07-28 21:35 | XMS_ITS | Encounter Summary ---
Author Organization [facility] Address [address] [facility] 7t [place] [address] Care Team Providers Care Telephone Diaphragm Assembler Name Role Phone Roque Soto Unavailable Radha Pat MD Primary Care Provider [phone] Cari Sebastian Unavailable Encounter Details Date Type Department Care Team (Late st Contact Info) Description 07/28/2025 Patient Outreach [employer] [facility] (C3) Department [address] [facility] [address] [place] [id number] Cari Sebastian Social History Tobacco Use Types Packs/Day Years [...] Description 09/14/2025 11:00 AM EST Office Visit [place] [facility] [address] [place] [address] Radha Pat MD [address] [place] [address] documented as of this encounter Visit Diagnoses Not on filedocumented in this encounter Additional Health Concerns Assessment Noted Time PHQ-9 Depression Total Score: 12 025 10:50 AM EST documented as of this encounter Care Teams Telephone Diaphragm Assembler Relationship Specialty Start Date End Date Radha Pat MD [address] [place] [facility] [address] PCP - General Family Medicine 07/06/25 Roque Soto 06/13/25 07/28/25 Cari Sebastian 07/18/25 documented as of this encounter
--- OUTSIDE RECORDS SUMMARY | 2025-07-28 21:35 | XMS_ITS | Encounter Summary ---
Author Organization [employer] Address [address] [facility] 7t [place] [address] Care Team Providers Care Extension Forester Name Role Phone Roque Soto Unavailable Radha Pat MD Primary Care Provider Romulo Cari Unavailable Reason for Visit * Reason Onset Date Comments Medication Problem 07/20/2025 Encounter Details Date Type Department Care Team (Late st Contact Info) Description 07/20/[address] [facility] [address] [place] [address] Radha Pat MD [address] [place] [address] Medication Problem Social History Tobacco Use Types Packs/Day Years [...] AM EDT documented as of this encounter Functional Status * Over the past 2 weeks, how often have you been bothered by any of the following problems? Question Answer Date of Assessment Author Patient Health Questionnaire-2 Score 6 10/2024 10:50 AM EST Kim Alee * Little interest or pleasure in doing things Answer Date of Assessment Author Nearly every day 07/20/2025 10:50 AM EST Kim, Alee * Feeling down, depressed, or hopeless Answer Date of Assessment Author Nearly every day 07/20/2025 10:50 AM EST Kim, Alee * Trouble falling or staying asleep, or sleeping too much Answer Date of Assessment Author Several days 07/20/2025 10:50 AM EST Kim, Alee * Feeling tired or having little energy Answer Date of Assessment Author Not at all 07/20/2025 10:50 AM EST Kim, Alee * Poor appetite or overeating Answer Date of Assessment Author Not at all 07/20/2025 10:50 AM EST Kim, Alee * Feeling bad about yourself - or that you are a failure or have let yourself or your family down Answer Date of Assessment Author Nearly every day 07/20/2025 10:50 AM EST Kim Alee * Trouble concentrating on things, such as reading the newspaper or watching television Answer Date of Assessment Author Several days 07/20/2025 10:50 AM EST Kim Alee * Moving or speaking so slowly that other people could have noticed? Or the opposite - being so fidgety or restless that you have been moving around a lot more than usual. Answer Date of Assessment Author Not at all 07/20/2025 10:50 AM EST Kim Alee * Thoughts that you would be better off or hurting yourself in some way Answer Date of Assessment Author Several days 07/20/2025 10:50 AM EST Kim Alee * Patient Health Questionnaire-9 Score Answer Date of Assessment Author 12 07/20/2025 10:50 AM EST Kim Alee * How difficult have these problems made it for you to do your work, take care of things at home, or get along with other people? Answer Date of Assessment Author Very difficult 07/20/2025 10:50 AM EST Kim Alee documented as of this encounter Miscellaneous Notes * Telephone Encounter - Loretta Lyle LPN - 07/21/2025 7:44 AM EST Has this pt had a trial of 3 other antipsychotics? Per * Telephone Encounter - Emelina Conteh - 07/20/2025 12:16 PM EST Waiting for note * Telephone Encounter - Nichole Bo - 07/20/2025 11:39 AM EST Tony from [facility] called and left a voicemail on behalf of patient stating that a prescription for Brexpiprazole (Rexulti) 0.5 MG tablet was sent in today 07/20/25. This medication needs a prior authorization with his insurance so it either needs to be switched for something else or his [facility] would need to be called. Any questions call [phone] documented in this encounter Plan of Treatment Upcoming Encounters Date Type Department Care Team (Late st Contact Info) Description 09/14/2025 11:00 AM EST Office Visit [place] [facility] [address] [place] [address] Radha Pat MD [address] [place] [address] documented as of this encounter Visit Diagnoses Not on filedocumented in this encounter Additional Health Concerns Assessment Noted Time PHQ-9 Depression Total Score: 12 025 10:50 AM EST documented as of this encounter Care Teams Extension Forester Relationship Specialty Start Date End Date Radha Pat MD [address] [place] [address] PCP - General Family Medicine 07/06/25 Roque Soto 06/13/25 07/28/25 Cari Sebastian 07/18/25 documented as of this encounter
--- OUTSIDE RECORDS SUMMARY | 2025-07-28 21:35 | XMS_ITS | Encounter Summary ---
Author Organization [facility] Address [address] [place] [address] Phone Care Team Providers Care Drier And Evaporator Operator Name Role Phone Radha Pat MD Primary Care Provider Encounter Details Date Type Department Care Team (Latest Contact Info) Description 04/15/2024 Transcribe Orders Virtual Department [address] [place] [address] Radha Pat MD [address] [place] [address] Cervical radiculopathy (Primary Dx) Social History Tobacco Use Types Packs/Day Years Used Date Smoking Tobacco: Never Assessed Sex and Gender Information Value Date Recorded Sex Assigned at Not on file Legal Sex Male 8:44 AM EDT Gender Identity Not on file Sexual Orientation Not on file documented as of this encounter Plan of Treatment Not on file documented as of this encounter Visit Diagnoses Diagnosis Cervical radiculopathy- Primary Brachial neuritis or radiculitis nos documented in this encounter Care Teams Drier And Evaporator Operator Relationship Specialty Start Date End Date Radha Pat MD [address] [place] [address] [email or web address] PCP - General Family Medicine 01/21/25 documented as of this encounter Additional Source Comments The information contained in this document represents components of the legal health record. It is not the complete legal health record.[facility]
--- OUTSIDE RECORDS SUMMARY | 2025-07-28 21:35 | XMS_ITS ---
Author Organization [employer] Address [address] [place] [address] [address] [place] [address] Care Team Providers Care Tar Processing Technician Name Role Phone Roque Soto Unavailable Radha Pat MD Primary Care Provider [phone] Cari Sebastian Unavailable [facility] Complex Status:Closed (Closed) Start date:06/13/2025 Enrollment reason:ADT Feed End date:07/28/2025 Close reason:Declined to Participate Overview [facility]. Evs C3 eligible Case Team Name Relationship Phone Roque Soto(Responsible Staff) [phone] Continued Care and Services Coordination
--- OUTSIDE RECORDS SUMMARY | 2025-07-28 21:35 | XMS_ITS | Encounter Summary ---
Author Organization [facility] Address [address] [facility] 7t [place] [address] Care Team Providers Care Burglar Alarm Mechanic Name Role Phone Roque Soto Unavailable Radha Pat MD Primary Care Provider [phone] Cari Sebastian Unavailable Encounter Details Date Type Department Care Team (Late st Contact Info) Description 07/28/2025 Patient Outreach [facility] () Department [address] [facility] [address] [place] [id number] Roque Soto Social History Tobacco Use Types Packs/Day Years [...] AM EDT documented as of this encounter Progress Notes * Roque Soto - 07/28/2025 11:12 AM EST 4th outreach Declined to participate documented in this encounter Plan of Treatment Upcoming Encounters Date Type Department Care Team (Late st Contact Info) Description 09/14/2025 11:00 AM EST Office Visit [place] [facility] [address] [place] [address] Radha Pat MD [address] [facility] [place] [address] documented as of this encounter Visit Diagnoses Not on filedocumented in this encounter Additional Health Concerns Assessment Noted Time PHQ-9 Depression Total Score: 12 025 10:50 AM EST documented as of this encounter Care Teams Burglar Alarm Mechanic Relationship Specialty Start Date End Date Radha Pat MD [address] [facility] [place] [address] PCP - General Family Medicine 07/06/25 Roque Soto 06/13/25 07/28/25 Cari Sebastian 07/18/25 documented as of this encounter
--- OUTSIDE RECORDS SUMMARY | 2025-07-28 21:35 | XMS_ITS ---
Author Organization [employer] Address [address] [place] [address] [address] [place] [address] Care Team Providers Care Endoscopy Specialty Technician Name Role Phone Roque Soto Unavailable Radha Pat MD Primary Care Provider [phone] Cari Sebastian Unavailable CM Complex Status:Outreach In Progress (Enrolling) Start date:06/10/2025 Enrollment reason:ADT Feed Case Team Name Relationship Phone Cari Sebastian(Responsible Staff) Continued Care and Services Coordination
--- OUTSIDE RECORDS SUMMARY | 2025-07-28 21:35 | XMS_ITS | Clinical Summary ---
Author Organization [facility] Address [address] [place] [address] Phone Care Team Providers Care High School Business Teacher Name Role Phone Radha Pat MD Primary Care Provider [phone] Allergies No known active allergies Medications meloxicam (MOBIC) 15 mg tabletIndication s:osteoarthritis Take 1 tablet (15 mg total) by mouth 1 (one) time each day. Active Active Problems No known active problems Surgical History Surgery Date Site/Laterality Comments ADENOIDECTOMY Medical History Medical History Date Comments Asthma COPD (chronic obstructive pulmonary disease) (CM S/HCC V24, CMS/HCC V28) Arthritis Chronic pain disorder Social History Tobacco Use Types Packs/Day Years Used Date Smoking Tobacco: Every Day Cigarettes Smokeless Tobacco: Never Tobacco Cessation:Ready to Q uit: No; Counseling Given: Yes Interpersonal Safety Answer Date Record ed Physical Abuse Unrecognized value 06/29/2024 Verbal Abuse Unrecognized value 06/29/2024 Sex and Gender Information Value Date Recorded Sex Assigned at Male 06/29/2024 8:27 AM EST Legal Sex Male 6:57 AM EST Gender Identity Male 06/29/2024 8:27 AM EST Sexual Orientation Straight 06/29/2024 8: 27 AM EST Last Filed Vital Signs Vital Sign Reading Time Taken Comments Blood Pressure 106/92 06/29/2024 11:19 AM EST Pulse 82 06/29/2024 11:19 AM EST Temperature 36.8 C (98.2 F) 06/29/2024 11:19 AM EST Respiratory Rate 20 06/29/2024 11:19 AM EST Oxygen Saturation 100% 06/29/2024 11:19 AM EST Inhaled Oxygen Concentration - - Weight - - Height - - Body Mass Index - - Plan of Treatment Health Maintenance Due Date Last Done Comments Colorectal Cancer Screening: Colonoscopy 1966 DTaP,Tdap,and Td Vaccines (1 - Tdap) 1985 Pneumococcal Vaccine: 50+ Years (1 of 2 - PCV) 1985 Zoster Vaccines (1 of 2) 2016 Cholesterol Screening (Lipid Panel) 07/21/2022 Hepatitis C Screening 07/21/2022 Social Influencers of Health Screening 07/21/2022 Depression Screening 08/18/2024 COVID-19 Vaccine (1 - 2024-2 6 season) 2025 Influenza Vaccine (#1) 2025 RSV Immunization Adult Patients (1 - 1-dose 75+ series) 2041 Hepatitis A Vaccines Aged Out 12/25/2023, 12/31/2022 No longer eligible based on patient's age to complete this topic Hepatitis B Vaccines Completed 02/26/2024, 12/25/2023, 12/31/2022 HIV Screening Completed 05/20/2024 HIB Vaccines Aged Out No longer eligi ble based on patient's age to complete this topic HPV Vaccines Aged Out No longer eligi ble based on patient's age to complete this topic IPV Vaccines Aged Out No longer eligi ble based on patient's age to complete this topic MMR Vaccines Aged Out No longer eligi ble based on patient's age to complete this topic Meningococcal ACWY Vaccine Aged Out N o longer eligible based on patient's age to complete this topic Meningococcal B Vaccine Aged Out No l onger eligible based on patient's age to complete this topic RSV Immunization Patients Under 20 months Aged Out No longer eligible b ased on patient's age to complete this topic Varicella Vaccines Aged Out No longer eligible based on patient's age to complete this topic Insurance MEDICAID - [place] Care Teams High School Business Teacher Relationship Specialty Start Date End Date Radha Pat MD [address] [place] [address] PCP - General Family Medicine 06/29/24
== END 2025-07-28 15:25 | disposition home or self-care (01) ==
LOC: HO.HNS 14:06
PROVIDERS: PCP Family Medicine; Visit Provider Physician Assistant
DX: M50.90 Cervical disc disorder, unspecified, unspecified cervical region (principal)
CPT/HCPCS: 99213

== ENCOUNTER → 2025-07-28 14:05 | Outpatient (BNVA) | payer MEDICAID, SELFPAY | PROVIDERS: PCP Family Medicine; Visit Provider Physician Assistant | DX: M50.90 Cervical disc disorder, unspecified, unspecified cervical region (principal) | CPT/HCPCS: 99212 ==